=== PATIENT | female | born 2000 | race Caucasian/White ===

== ENCOUNTER 2024-03-18 20:19 | Emergency (ER) | payer OTHER ==
[~2024-03-18] VITALS: Ht 165.1 cm; Wt 63.5 kg
[~2024-03-18 20:19] MED LIST: ONDA-226 PO
[2024-03-18 20:31] VITALS: BP 134/82; PULSE 86; RESP 16; TEMP 98; O2SAT 100
[2024-03-18 20:52] LABS: BASOPHIL % 0.4 % (0.1-1.2); EOSINOPHIL % 0.5 % (0.0-5.0); HEMATOCRIT(ML) 38.7 % (36.0-46.0); HEMOGLOBIN 13.2 g/dL (12.0-15.0); LYMPHOCYTES # 3.38 10^3/uL1 (1.0-4.8); LYMPHOCYTES % 41.3 % (24.0-44.0); MEAN CORP HGB 30.5 pg (26-34); MEAN CORP HGB CONCENTRATION 34.1 g/dL (33-36.5); MEAN CORP VOLUME 89.4 fL (78-100); MONOCYTES # 0.7 10^3/uL (0.3-0.8); MONOCYTES % 8.3 % (5.0-12.0); NEUTROPHIL # 4.1 10^3/uL (1.8-7.7); NEUTROPHILS % 49.4 % (41.0-85.0); PLATELET COUNT 324 10^3/uL (150-400); RED BLOOD CELL 4.33 10^6/uL (4.00-5.20); RED CELL DISTRIBUTION WIDTH 11.7 % (11.5-14.5); WHITE BLOOD CELL 8.2 10^3/uL (4.5-11.0)
[2024-03-18 20:54] LABS: +ADD MANUAL DIFF(NO CHRG) NO
[2024-03-18 20:58] LABS: BILIRUBIN,URINE NEGATIVE (NEGATIVE); LEUKOCYTE ESTERASE ,URINE NEGATIVE (NEGATIVE); NITRATE,URINE NEGATIVE (NEGATIVE); UROBILINOGEN,URINE 0.2 E.U./dL (0.2)
[2024-03-18 20:59] LABS: APPEARANCE,URINE CLEAR; UA COLOR STRAW
[2024-03-18 21:08] LABS: ALBUMIN(ML) 4.3 g/dL (3.4-5.0); ALBUMIN/GLOBULIN RATIO 1.303; ANION GAP 11.2; BUN/CREATININE RATIO 2.56 (10.0-20.0); CALCIUM 9.1 mg/dL (8.4-10.5); CARBON DIOXIDE 26.6 mmol/L (20.0-32); CREATININE SERUM 0.78 mg/dL (0.59-1.40); EST GFR, NON-AA 93.2 (>/=60); POTASSIUM 2.8 mmol/L (3.6-5.2)
[2024-03-18 21:20] VITALS: BP 119/84; PULSE 75; RESP 18; O2SAT 98
[2024-03-18] MEDS ORDERED: KLOR-CON 10 PO ONE (21:24)
[2024-03-18] MEDS ORDERED: POTASSIUM CHLORIDE ONE (21:26)
[2024-03-18] MEDS: POTASSIUM CHLORIDE PO ONE (21:29)
[2024-03-18] MEDS: KLOR-CON 10 PO STA (21:30)
[2024-03-18 21:45] VITALS: BP 109/74; PULSE 77; RESP 18; O2SAT 98
== END 2024-03-18 21:39 | disposition home or self-care (01) ==
LOC: ER 20:19
DX: O20.0 Threatened abortion (principal); F12.90 Cannabis use, unspecified, uncomplicated; Z3A.01 Less than 8 weeks gestation of pregnancy
CPT/HCPCS: 99283; 80053; 85025; 36415; 81001; 86900; 84702; J3490

== ENCOUNTER 2024-03-22 10:00 | Emergency (ER) | payer OTHER ==
[~2024-03-22] VITALS: Ht 162.6 cm; Wt 63.5 kg
[2024-03-22 10:41] VITALS: BP_SYST 125; BP_SYST 127; BP_DIAS 79; PULSE 87; RESP 20; TEMP 98.4; O2SAT 98
[2024-03-22 14:57] VITALS: BP 132/80; PULSE 95; RESP 18; O2SAT 95
== END 2024-03-22 14:48 | disposition home or self-care (01) ==
LOC: ER 10:00
DX: O20.9 Hemorrhage in early pregnancy, unspecified (principal); Z3A.01 Less than 8 weeks gestation of pregnancy
CPT/HCPCS: 36415; 84702; 84703; 99283

== ENCOUNTER 2024-08-27 10:16 | Emergency (ER) | payer OTHER ==
[~2024-08-27] VITALS: Ht 162.6 cm; Wt 56.7 kg
[2024-08-27 10:33] VITALS: BP 122/70; PULSE 87; RESP 18; TEMP 97.8; O2SAT 98
[2024-08-27 11:15] VITALS: BP 121/75; PULSE 78; RESP 18; O2SAT 98
== END 2024-08-27 11:15 | disposition home or self-care (01) ==
LOC: ER 10:16
DX: S16.1XXA Strain of muscle, fascia and tendon at neck level, initial encounter (principal); F17.290 Nicotine dependence, other tobacco product, uncomplicated; Z79.899 Other long term (current) drug therapy; X58.XXXA Exposure to other specified factors, initial encounter; Y93.72 Activity, wrestling; Y92.89 Other specified places as the place of occurrence of the external cause; Y99.8 Other external cause status
CPT/HCPCS: 81025; 99282